=== PATIENT | male | born 1990 | race African-American/Black ===

== ENCOUNTER 2018-07-12 17:48 | Emergency (ER) | payer OTHER ==
[~2018-07-12] VITALS: Ht 170.2 cm; Wt 65.5 kg
[2018-07-12 17:48] VITALS: BP 132/68
[2018-07-12] MEDS ORDERED: BACT2CRE TOP (18:40)
[2018-07-12] MEDS ORDERED: HYDR1CRE TOP (18:40)
== END 2018-07-12 18:45 | disposition home or self-care (01) ==
LOC: M ED 17:48
DX: L01.01 Non-bullous impetigo (principal); F17.200 Nicotine dependence, unspecified, uncomplicated

== ENCOUNTER 2018-12-29 15:04 | Emergency (ER) | payer OTHER ==
[~2018-12-29] VITALS: Ht 170.2 cm; Wt 65.5 kg
[~2018-12-29 15:04] MED LIST: BACT2CRE TOP; HYDR1CRE TOP
[2018-12-29 19:32] LABS: APPEARANCE, URINE CLEAR (CLEAR); BACTERIA, URINE AUTO NEGATIVE (NEGATIVE); BILIRUBIN, URINE AUTO NEGATIVE (NEGATIVE); BLOOD, URINE BLOOD NEGATIVE (NEGATIVE); COLOR, URINE YELLOW (YELLOW); GLUCOSE, URINE (UA) AUTO NEGATIVE (NEGATIVE); KETONE, URINE AUTO TRACE mg/dL (NEGATIVE); LEUKOCYTE ESTERASE, URINE AUTO NEGATIVE (NEGATIVE); MUCUS, URINE SMALL (NEGATIVE); NITRITE, URINE AUTO NEGATIVE (NEGATIVE); PROTEIN, URINE AUTO NEGATIVE (NEGATIVE); RBC, URINE AUTO 3 /HPF (0-3); SPECIFIC GRAVITY URINE AUTO 1.018 (1.002-1.035); SQUAMOUS EPITHELIAL CELL UR AU 0 /HPF (0-6); WBC, URINE AUTO 1 /HPF (0-3)
--- NOTE | 2018-12-29 20:32 | REPVR ---
EXAM: US Scrotum EXAM DATE/TIME: 12/29/2018 8:06 PM CLINICAL HISTORY: 28 years old, male; Scrotum pain; Additional info: Reported pain/swelling TECHNIQUE: Imaging protocol: Real-time ultrasound of the scrotum and contents with color Doppler and image documentation. COMPARISON: No relevant prior studies available. FINDINGS: Right Testicle: Right testis measures 4.4 x 1.9 x 2.2 cm. Normal echogenicity. Normal vascular flow. Left Testicle: Left testis measures 4.5 x 2 x 2.6 cm. Normal echogenicity. Normal vascular flow. Epididymides: Normal. Scrotum: Left sided varicocele measuring up to 0.4 cm in maximal diameter. IMPRESSION: 1. No evidence of testicular torsion. 2. Left sided varicocele measuring up to 0.4 cm in maximal diameter. Electronically signed by: Sha Correa On 12/29/2018 20:32:40 PM
[2018-12-29] MEDS ORDERED: CLOTCRE3 TOP (21:03)
[2018-12-29] MEDS ORDERED: CLOTRIMAZOLE 1% TOPICAL CREAM 30GM TOP STA (21:05)
[2018-12-29 21:20] VITALS: BP 120/79
[2018-12-29 21:31] LABS: CHLAMYDIA DNA AMPLIFICATION NEGATIVE (NEGATIVE); GC DNA AMPLIFICATION NEGATIVE (NEGATIVE)
[2018-12-30 08:18] LABS: HIV 1&2 SCREEN CENTAUR NEGATIVE (NEGATIVE)
[2018-12-31 09:47] LABS: HEPATITIS B SURFACE ANTIBODY POSITIVE (POSITIVE); HEPATITIS B SURFACE ANTIGEN NEGATIVE (NEGATIVE); HEPATITIS C VIRUS ABY INDEX 0.1 INDEX (<0.8)
== END 2018-12-29 21:23 | disposition home or self-care (01) ==
LOC: M ED 15:04
DX: B35.6 Tinea cruris (principal); I86.1 Scrotal varices; Z72.0 Tobacco use

== ENCOUNTER 2019-02-24 17:30 | Emergency (ER) | payer OTHER ==
[~2019-02-24] VITALS: Ht 170.2 cm; Wt 97.3 kg
[~2019-02-24 17:30] MED LIST changes: +CLOTCRE3 TOP
[2019-02-24 18:18] VITALS: BP 110/67
[2019-02-24] MEDS ORDERED: NAPR-837 PO (18:26)
[2019-02-24] MEDS ORDERED: IBUPROFEN 800 MG TAB PO ONE (18:30)
--- NOTE | 2019-02-24 19:09 | REP ---
HISTORY: Pain after running. COMPARISON: None. There is a sclerotic lesion which is cortical based seen in the proximal, medial, tibial diaphysis measuring approximately 5 x 1.4 cm. There is no fracture. The compartments are normal. IMPRESSION: Cortical based bone lesion seen in the posterior medial proximal tibial diaphysis as described above. This lesion has a narrow zone of transition, however, I would recommend pre- and post gadolinium enhanced MRI for complete evaluation. Electronically Signed by Rhett Nuñez DO 02/24/2019 07:54 P
--- NOTE | 2019-02-25 13:47 | ED PDOC ---
Post-Departure Follow-Up dr osborne faxed formal report of left knee for fu Bennie Interiano MD Feb 25, 2019 13:47
== END 2019-02-24 18:42 | disposition home or self-care (01) ==
LOC: M ED 17:30
DX: M76.32 Iliotibial band syndrome, left leg (principal); F17.210 Nicotine dependence, cigarettes, uncomplicated

== ENCOUNTER 2019-05-03 16:47 | Emergency (ER) | payer OTHER ==
[~2019-05-03] VITALS: Ht 170.2 cm; Wt 65.0 kg
[~2019-05-03 16:47] MED LIST changes: +NAPR-837 PO
[2019-05-03] MEDS: LIDOCAINE 5% (LIDODERM) PATCH TD ONE (18:16)
[2019-05-03] MEDS: KETOROLAC 60 MG/2 ML VIAL (J1885) IM ONE (18:16)
[2019-05-03] MEDS ORDERED: NAPR-837 PO (19:57)
[2019-05-03] MEDS ORDERED: ROBA750T4 PO (19:57)
[2019-05-03] MEDS ORDERED: LIDO1PAD TOP (19:57)
[2019-05-03 20:00] VITALS: BP 110/68
[2019-05-03] MEDS: METHOCARBAMOL 750 MG TAB PO ONE (20:01)
[2019-05-03] MEDS ORDERED: **NOTE PATIENT COMMENT** MISC XX SCH (21:00)
--- NOTE | 2019-05-04 08:21 | REP ---
CT thoracic spine: 05/03/2019. Indication: Thoracic pain. Comparison: None. Technique: Unenhanced axial CT images of the thoracic spine were performed with coronal and sagittal reconstructions provided. Findings: There is no acute fracture, subluxation or dislocation. Alignment is within anatomical limits. There is no hemorrhage or additional acute pathology within the spinal canal. No areas of severe spinal canal narrowing are detected. The neural foramen appear patent. The visualized lungs are clear. Impression: No acute osseous injury of the thoracic spine. Electronically Signed by Delano Davis DO 05/04/2019 08:13 A
== END 2019-05-03 20:05 | disposition home or self-care (01) ==
LOC: M ED 16:47
DX: S29.002A Unspecified injury of muscle and tendon of back wall of thorax, initial encounter (principal); X58.XXXA Exposure to other specified factors, initial encounter; Y92.89 Other specified places as the place of occurrence of the external cause; Y93.89 Activity, other specified; Y99.8 Other external cause status; F17.200 Nicotine dependence, unspecified, uncomplicated
CPT/HCPCS: 72128; 96372; 99283; J1885

== ENCOUNTER 2020-01-26 15:14 | Emergency (ER) | payer OTHER ==
[~2020-01-26] VITALS: Ht 170.2 cm; Wt 68.4 kg
[2020-01-26 15:14] VITALS: BP 129/78
[~2020-01-26 15:14] MED LIST changes: +LIDO1PAD TOP; +ROBA750T4 PO
[2020-01-26] MEDS ORDERED: metroNIDAZOLE (FLAGYL) 500MG TABLET PO ONE (16:00)
[2020-01-26 17:33] LABS: CHLAMYDIA DNA AMPLIFICATION NEGATIVE (NEGATIVE); GC DNA AMPLIFICATION NEGATIVE (NEGATIVE)
== END 2020-01-26 16:12 | disposition home or self-care (01) ==
LOC: M ED 15:14
DX: Z20.2 Contact with and (suspected) exposure to infections with a predominantly sexual mode of transmission (principal); F17.200 Nicotine dependence, unspecified, uncomplicated

== ENCOUNTER 2022-07-18 09:17 | Emergency (ER) | payer OTHER ==
[~2022-07-18] VITALS: Ht 172.7 cm; Wt 67.3 kg
[2022-07-18] MEDS ORDERED: HYDR-3713 PO (11:23)
[2022-07-18 12:13] VITALS: BP 115/68
== END 2022-07-18 12:22 | disposition home or self-care (01) ==
LOC: M ED 09:17 → EDBD 09:17 → EDSEX 09:17 → M ED 12:22
DX: S82.451A Displaced comminuted fracture of shaft of right fibula, initial encounter for closed fracture (principal); W00.0XXA Fall on same level due to ice and snow, initial encounter; Y92.89 Other specified places as the place of occurrence of the external cause; Y93.01 Activity, walking, marching and hiking; Y99.8 Other external cause status

== ENCOUNTER → 2022-07-19 | Outpatient (CLI) | payer OTHER ==
[~2022-07-19] MED LIST changes: +HYDR-3713 PO
== END ==
LOC: M SOG 13:50
PROVIDERS: ATTEND Orthopaedic Surgery
DX: S82.61XA Displaced fracture of lateral malleolus of right fibula, initial encounter for closed fracture (principal); W18.30XA Fall on same level, unspecified, initial encounter; Y92.009 Unspecified place in unspecified non-institutional (private) residence as the place of occurrence of the external cause

== ENCOUNTER → 2022-07-26 | Outpatient (CLI) | payer OTHER | LOC: M SOG 09:11 | PROVIDERS: ATTEND Orthopaedic Surgery | DX: S82.61XA Displaced fracture of lateral malleolus of right fibula, initial encounter for closed fracture (principal); X58.XXXA Exposure to other specified factors, initial encounter; Y92.89 Other specified places as the place of occurrence of the external cause; Y93.89 Activity, other specified; Y99.8 Other external cause status ==

== ENCOUNTER 2022-07-30 15:53 | Day surgery (SDC) | payer OTHER ==
[~2022-07-30] VITALS: Ht 172.7 cm; Wt 59.4 kg
[~2022-07-30 15:53] MED LIST changes: +ceFAZolin SOD 2 GM in IV 1 EA IV ONE
[2022-07-30] MEDS ORDERED: LR 1,000 ML IV SCH ×2 (16:05→18:35)
[2022-07-30] MEDS ORDERED: BUPIVACAINE/EPIN 0.25% 30ML VIAL As Ordered ONE (17:19)
[2022-07-30] MEDS ORDERED: MIDAZOLAM INJ 2MG/2ML VIAL As Ordered ONE (17:52)
[2022-07-30] MEDS ORDERED: SUGAMMADEX SODIUM 500 MG/5 ML VIAL (BRIDION) As Ordered ONE (17:52)
[2022-07-30] MEDS ORDERED: ONDANSETRON 4MG 2ML VIAL As Ordered ONE (17:52)
[2022-07-30] MEDS ORDERED: LIDOCAINE 2% 100MG/5ML SDV (FOR ANES.) As Ordered ONE (17:52)
[2022-07-30] MEDS ORDERED: fentaNYL 100 MCG/2 ML INJECTION As Ordered ONE ×2 (17:52→17:53)
[2022-07-30] MEDS ORDERED: ROCURONIUM BROMIDE 50MG/5ML VIAL As Ordered ONE (17:52)
[2022-07-30] MEDS ORDERED: METOCLOPRAMIDE INJ 10MG/2ML VIAL As Ordered ONE (17:52)
[2022-07-30] MEDS ORDERED: propofoL 200 MG/20 ML VIAL As Ordered ONE ×2 (17:52→18:29)
[2022-07-30] MEDS ORDERED: fentaNYL 100 MCG/2 ML INJECTION IV PRN (18:35)
[2022-07-30] MEDS ORDERED: METOCLOPRAMIDE INJ 10MG/2ML VIAL IV PRN (18:35)
[2022-07-30] MEDS ORDERED: ONDANSETRON 4MG 2ML VIAL IV PRN (18:35)
[2022-07-30] MEDS ORDERED: HYDR-3713 PO (18:54)
[2022-07-30] MEDS: oxyCODONE 5MG TAB PO PRN ×2 (19:02→19:30)
[2022-07-30] MEDS: HYDROMORPHONE HCL 0.5 MG/ 0.5 ML SYRINGE IV PRN ×4 (19:05→19:22)
[2022-07-30 20:05] VITALS: BP 139/72
== END 2022-07-30 20:16 | disposition home or self-care (01) ==
LOC: M SDC 15:53
PROVIDERS: ATTEND Orthopaedic Surgery
DX: S82.61XA Displaced fracture of lateral malleolus of right fibula, initial encounter for closed fracture (principal); X58.XXXA Exposure to other specified factors, initial encounter; Y92.89 Other specified places as the place of occurrence of the external cause; Z79.890 Hormone replacement therapy; F17.210 Nicotine dependence, cigarettes, uncomplicated
CPT/HCPCS: 27792; 76000; 87635; C1713; J0690; J1100; J1170; J2250; J2405; J2765; J3010; S0020

== ENCOUNTER → 2022-08-10 | Outpatient (CLI) | payer OTHER ==
[~2022-08-10] MED LIST changes: -ceFAZolin SOD 2 GM in IV 1 EA IV ONE
== END ==
LOC: M SOG 08:19
PROVIDERS: ATTEND Orthopaedic Surgery
DX: Z47.89 Encounter for other orthopedic aftercare (principal)

== ENCOUNTER → 2022-08-24 | Outpatient (CLI) | payer OTHER | LOC: M SOG 07:55 | PROVIDERS: ATTEND Orthopaedic Surgery | DX: Z47.89 Encounter for other orthopedic aftercare (principal); S82.61XD Displaced fracture of lateral malleolus of right fibula, subsequent encounter for closed fracture with routine healing; M79.89 Other specified soft tissue disorders ==

== ENCOUNTER → 2022-09-12 | Outpatient (CLI) | payer OTHER | LOC: M SOG 08:11 | PROVIDERS: ATTEND Orthopaedic Surgery | DX: S82.61XD Displaced fracture of lateral malleolus of right fibula, subsequent encounter for closed fracture with routine healing (principal); Y92.9 Unspecified place or not applicable; Y93.9 Activity, unspecified ==

== ENCOUNTER → 2022-10-03 | Outpatient (RCR) | payer OTHER | LOC: M PT 09-19 08:02 | PROVIDERS: ATTEND Orthopaedic Surgery | DX: S82.61XA Displaced fracture of lateral malleolus of right fibula, initial encounter for closed fracture (principal) ==

== ENCOUNTER → 2022-10-25 | Outpatient (CLI) | payer OTHER | LOC: M SOG 09:51 | PROVIDERS: ATTEND Orthopaedic Surgery | DX: S82.61XA Displaced fracture of lateral malleolus of right fibula, initial encounter for closed fracture (principal); W18.30XA Fall on same level, unspecified, initial encounter; Y92.009 Unspecified place in unspecified non-institutional (private) residence as the place of occurrence of the external cause ==

== ENCOUNTER 2022-10-31 13:00 | Outpatient (RCR) | payer OTHER | END 2022-11-02 | LOC: M PT 13:00 | PROVIDERS: ATTEND Orthopaedic Surgery | DX: S82.61XA Displaced fracture of lateral malleolus of right fibula, initial encounter for closed fracture (principal); W18.30XA Fall on same level, unspecified, initial encounter; Y92.009 Unspecified place in unspecified non-institutional (private) residence as the place of occurrence of the external cause ==

== ENCOUNTER 2022-11-15 10:45 | Outpatient (RCR) | payer OTHER | END 2022-12-03 | LOC: M PT 10:45 | PROVIDERS: ATTEND Orthopaedic Surgery | DX: S82.61XD Displaced fracture of lateral malleolus of right fibula, subsequent encounter for closed fracture with routine healing (principal) ==

== ENCOUNTER → 2022-11-15 | Outpatient (CLI) | payer OTHER | LOC: M SOG 15:09 | PROVIDERS: ATTEND Orthopaedic Surgery | DX: S82.61XD Displaced fracture of lateral malleolus of right fibula, subsequent encounter for closed fracture with routine healing (principal) ==

== ENCOUNTER 2023-09-24 08:56 | Emergency (ER) | payer MEDICAID, OTHER, SELFPAY ==
[~2023-09-24] VITALS: Ht 172.7 cm; Wt 63.7 kg
[2023-09-24] MEDS: KETOROLAC 30 MG/ML 1ML VIAL IM ONE (11:21)
[2023-09-24] MEDS: ACETAMINOPHEN 500 MG TAB PO ONE (11:21)
[2023-09-24] MEDS: LIDOCAINE 5% (LIDODERM) PATCH TD ONE (11:21)
[2023-09-24] MEDS ORDERED: LIDO5DIS41 TD (12:16)
[2023-09-24] MEDS ORDERED: NAPR-837 PO (12:16)
[2023-09-24 12:29] VITALS: BP 100/65; TEMP 98; O2SAT 99
== END 2023-09-24 12:31 | disposition home or self-care (01) ==
LOC: M ED 08:56
DX: M54.50 Low back pain, unspecified (principal); F17.210 Nicotine dependence, cigarettes, uncomplicated; Z79.1 Long term (current) use of non-steroidal anti-inflammatories (NSAID); Z79.899 Other long term (current) drug therapy
CPT/HCPCS: 72110; 96372; 99283; J1885

== ENCOUNTER 2024-12-06 08:29 | Emergency (ER) | payer OTHER ==
[~2024-12-06] VITALS: Ht 172.7 cm; Wt 69.7 kg
[~2024-12-06 08:29] MED LIST changes: +LIDO1ADH93 TD; +METH-1165 PO
[2024-12-06 09:21] LABS: BASO # 0.0 10^3/uL (0.0-0.2); BASO % 0.3 % (0.0-1.0); EOS # 0.3 10^3/uL (0.0-0.5); EOS % 2.7 % (0.0-3.0); LYMPH # 2.0 10^3/uL (1.5-5.0); LYMPH % 19.0 % (24.0-44.0); MONO # 1.0 10^3/uL (0.0-0.8); MONO % 9.4 % (2.0-8.0); NEUTROPHILS # 7.1 10^3/uL (1.5-8.5); NEUTROPHILS % 68.2 % (36.0-66.0); PLATELET COUNT, AUTOMATED 213 10^3/uL (150-450)
[2024-12-06 09:33] VITALS: TEMP 97.6
[2024-12-06 09:34] LABS: D-DIMER QUANT < 0.27 ug/mL (<0.5); INR 0.94
[2024-12-06 09:43] LABS: CALCIUM LEVEL 8.5 MG/DL (8.5-10.1); CARBON DIOXIDE LEVEL 26 MMOL/L (20-31); CHLORIDE LEVEL 105 MMOL/L (98-107); CK-MB VALUE MASS < 1.0 NG/ML (<3.6); CPK CREATINE PHOSPHOKINASE 130 U/L (46-171); CREATININE FOR GFR 0.99 MG/DL (0.70-1.30); GLOMERULAR FILTRATION RATE > 90.0 (>60); POTASSIUM SERUM 4.2 MMOL/L (3.5-5.1); SODIUM LEVEL 141 MMOL/L (136-145)
[2024-12-06 10:48] LABS: CK-MB VALUE MASS < 1.0 NG/ML (<3.6)
[2024-12-06 10:52] LABS: CPK CREATINE PHOSPHOKINASE 140 U/L (46-171)
[2024-12-06] MEDS: KETOROLAC 30 MG/ML 1 ML VIAL IV ONE (11:31)
[2024-12-06 12:15] VITALS: BP 106/68; O2SAT 100
[2024-12-06] MEDS ORDERED: NAPR-885 PO (12:17)
== END 2024-12-06 12:38 | disposition home or self-care (01) ==
LOC: M ED 08:29
DX: R07.9 Chest pain, unspecified (principal); R00.1 Bradycardia, unspecified; F17.210 Nicotine dependence, cigarettes, uncomplicated; Z79.899 Other long term (current) drug therapy
CPT/HCPCS: 71045; 80048; 82550; 82553; 84484; 85025; 85379; 85610; 85730; 93005; 93041; 94760; 96374; 99285; J1885